=== PATIENT | female | born 1950 | race Caucasian/White ===

== ENCOUNTER 2019-05-06 05:33 | Day surgery (SDC) | payer OTHER ==
[~2019-05-06] VITALS: Ht 165.1 cm; Wt 87.1 kg
[2019-05-06 06:13] LABS: BASOPHILS 0.6 % (0-2); EOSINOPHILS 3.7 % (0-7); HEMATOCRIT 40.3 % (36.0-48.0); HEMOGLOBIN 13.1 g/dL (12-16); IMMATURE GRANULOCYTES 0.2 % (0-5); LYMPHOCYTES 20.8 % (15-50); MCH 28.9 pg (26.0-34.0); MCHC 32.5 g/dL (31.0-37.0); MEAN PLATELET VOLUME 10.8 fL (7.4-10.4); MONOCYTES 9.1 % (2-11); NEUTROPHILS 65.6 % (40-80); PLATELET COUNT 202 10x3/uL (130-400); RBC 4.53 10x6/uL (4.00-5.40); WBC 4.9 10x3/uL (4.8-10.8)
[2019-05-06 06:30] LABS: ANION GAP 12.5 mmol/L (8-16); CALCIUM 9.3 mg/dL (8.5-10.1); CARBON DIOXIDE 28.7 mmol/L (21.0-32.0); POTASSIUM - SERUM 3.2 mmol/L (3.5-5.1)
[2019-05-06 06:31] LABS: INR 0.97 (0.85-1.17); PROTIME 12.4 SECONDS (11.6-15.0)
[2019-05-06] MEDS ORDERED: EFFEXOR XR150 MG PO (06:52)
[2019-05-06] MEDS ORDERED: NORMODYNE / TR100 MG PO (06:52)
[2019-05-06] MEDS ORDERED: HYDROCHLOROTHIA25 MG PO (06:53)
[2019-05-06 07:02] VITALS: BP 117/73; Ht 165.1 cm; Wt 87.1 kg
[2019-05-06] MEDS ORDERED: HYDROCODON-ACE1 EAC7 PO (09:47)
--- NOTE | 2019-05-06 11:00 | NUR ---
1036-REC'D FROM RR. ALERT AND AWAKE,VSS, 02 2L VIA N/C. REPORTS PAIN 03/31,DESCRIBES "THROBBING" JORDANA DRAIN INTACT TO BACK WITH RED BLOOD DRAINING-20CC CURRENTLY. DRESSING CDI. CL IN EASY REACH,DAUGHTER AT BEDSIDE. REVIEWED DISCHARGE CRITERIA
--- NOTE | 2019-05-06 11:02 | NUR ---
1058-FULL LIQUID TRAY TO ROOM.
--- NOTE | 2019-05-06 12:25 | NUR ---
1200- DISCHARGE CRITERIA MET. REMOVED IV FROM LAC WITH CATH INTACT. DISPOSED INTO SHARPS, COVERED SITE WITH BANDAID. REVIEWED POST OPERATIVE INSTRUCTIONS AND TEACHING ON JORDANA DRAINAGE EMPTYING THREE TIMES DAILY PER VERBALIZED UNDERSTANDING. DRESSING TO BACK CDI.
--- NOTE | 2019-05-06 12:26 | NUR ---
1212-PT DRESSED. ESCORTED OUT VIA W/C WITH DAUGHTER AWAITING TO DRIVE HOME.
--- NOTE | 2019-05-17 07:37 | OP ---
PATIENT NAME: KOBY HWANG MEDICAL RECORD: [id number] :50 LOCATION:[facility] ADMISSION DATE: SURGEON: GEOVANNI WILSON MD DATE OF OPERATION: 05/06/2019 REFERRED BY: Dr. 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 OPERATION PERFORMED: Excision. SURGEON: Geovanni Wilson MD ANESTHESIA: General endotracheal per [facility]. PREOPERATIVE NOTE: Ms. 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 This was excised approximately 10 years ago and it was a benign lipoma at that time. The lesion is now about the size of a baseball and is causing surrounding pressure type symptoms. She is brought to the OR for its excision. Under general anesthesia, the patient was turned into the decubitus position and prepped and draped in sterile manner. A transverse incision was placed directly over the mass and the incision carried through the superficial subcutaneous fat to expose the pseudocapsule of the underlying lipoma. Blunt and sharp dissection was then used to shell the lipomatous tumor out of the wound. It was lying on top of and attached to the investing muscular fascia, but the dissection was really quite easy. The tumor itself measured perhaps 8 x 7 x 5 cm. It was a well-encapsulated seemingly and lobulated. The wound was then infiltrated with 0.25% Marcaine with epinephrine and closed over a 10-mm flat fluted closed suction drain using interrupted inverted 3-0 Vicryl and running intracuticular 4-0 Stratafix. The incision was sealed with glue. The incision was then dressed with Maxorb Ag, Tegaderm, and Cavilon skin prep. The JORDANA drain site was dressed with a chlorhexidine Biopatch, Tegaderm and a Medipore adhesive dressing. She was then awakened and taken back to the recovery room in stable condition. Blood loss during the operation was about 5 cc, was unreplaced. Sponges, instruments, and needles were accounted for. One drain was used as I described and the surgical specimen, the entire excised lipomatous mass was sent to pathology for gross and microscopic examination. PLAN: The patient will be discharged to home today. She will be instructed in JORDANA drain care. She is to keep a written record of the volume of drainage and bring it with her when she comes to see me in my office next week. She is given a prescription for Ganado 5/325, #10 tablets, she can take 1 or 1-2 p.o. q.6 hours p.r.n. pain, but is encouraged to substitute or alternate with ibuprofen 400 mg. Also, she is encouraged to use ice to decrease discomfort as well as bleeding, bruising and swelling in the area. She is to keep the incision site and the drain site dry and clean and I will remove her dressing when I see her next week. OPERATIVE REPORT [id number] KOBY HWANG TRANSINT:[id number] Voice Confirmation ID: [id number] DOCUMENT ID: [id number] GEOVANNI WILSON MD at 0737 CC: HILARIO RODRIGUEZ [id number] DICTATION DATE: 05/06/19 1008 EXPERIMENTAL MECHANIC ELECTRICAL: 05/06/19 1021 [facility] 05/06/19 [id number] [place] [address]
== END 2019-05-06 12:12 | disposition home or self-care (01) ==
LOC: D.OPS 05:33
PROVIDERS: ATTEND Surgery
DX: D17.1 Benign lipomatous neoplasm of skin and subcutaneous tissue of trunk (principal)

== ENCOUNTER 2020-12-22 05:54 | Observation (INO) | payer OTHER ==
[~2020-12-22] VITALS: Ht 165.1 cm; Wt 78.6 kg
[2020-12-22] VITALS (8 sets, daily range): BP systolic 126–186; BP diastolic 44–99; Ht 165.1 cm; Wt 78.6 kg
[~2020-12-22 05:54] MED LIST: EFFEXOR XR150 MG PO; HYDROCHLOROTHIA25 MG PO; HYDROCODON-ACE1 EAC7 PO; NORMODYNE / TR100 MG PO
[2020-12-22] MEDS ORDERED: FENTANYL1 EAC6 TRANSDERM (06:11)
[2020-12-22] MEDS ORDERED: NEURONTIN 300300 MG PO (06:23)
[2020-12-22 06:45] LABS: BASOPHILS 1.3 % (0-2); HEMATOCRIT 41.1 % (36.0-48.0); HEMOGLOBIN 13.2 g/dL (12-16); LYMPHOCYTES 16.4 % (15-50); MCH 27.7 pg (26.0-34.0); MCHC 32.2 g/dL (31.0-37.0); MCV 86.1 fL (80.0-100.0); MEAN PLATELET VOLUME 8.7 fL (7.4-10.4); MONOCYTES 8.8 % (2-11); NEUTROPHILS 66.5 % (40-80); PLATELET COUNT 188 10x3/uL (130-400); RBC 4.77 10x6/uL (4.00-5.40); RDW 14.7 % (11.5-14.5); WBC 5.8 10x3/uL (4.8-10.8)
[2020-12-22 07:00] LABS: CALC OSMOLALITY 281 mosm/kg (275-300); CALCIUM 8.8 mg/dL (8.5-10.1); CARBON DIOXIDE 27.1 mmol/L (21.0-32.0); CHLORIDE - SERUM 102 mmol/L (98-107); CREATININE - SERUM 0.8 mg/dL (0.6-1.3); GLUCOSE 116 mg/dL (74-106); POTASSIUM - SERUM 3.9 mmol/L (3.5-5.1); SODIUM 138 mmol/L (136-145); UREA NITROGEN 26 mg/dL (7-18); eGFR NON AFRICAN AMERICAN 75 mL/min (90-120)
[2020-12-22 07:08] LABS: ALBUMIN 3.9 g/dL (3.4-5.0); ALKALINE PHOSPHATASE 108 U/L (30-120); ALT (SGPT) 45 U/L (10-68); BILIRUBIN - TOTAL 0.27 mg/dL (0.2-1.3); C-REACTIVE PROTEIN 0.2 mg/dL (0.0-0.9); MAGNESIUM - SERUM 1.9 mg/dL (1.8-2.4); PROTEIN - SERUM 7.6 g/dL (6.4-8.2); TROPONIN-I < 0.017 ng/mL (0.000-0.060)
[2020-12-22 08:26] LABS: APTT 29.8 SECONDS (22.8-39.4); INR 1.01 (0.85-1.17); PROTIME 12.3 SECONDS (11.6-15.0)
[2020-12-22 09:14] LABS: CKMB 2.9 U/L (0.0-3.6); CREATINE KINASE 120 UL (21-215); THYROID STIMULATING HORMONE 3.83 uIU/mL (0.36-3.74)
--- NOTE | 2020-12-22 10:31 | NUR ---
PATIENT HAS A PAIN PUMP THAT NEEDS TO BE CHECKED BY HER DOCTOR AFTER MRI IS DONE. WE WERE UNABLE TO DO MRI BECAUSE THE DOCTORS OFFICE IS CLOSED. [employer] STATED IT MUST BE CHECKED AFTER MRI. SPOKE WITH DR. MONTIEL HE HAD ME CALL DR DURÁN. SPOKE WITH DR DURÁN AND HE TOLD ME TO CANCEL IT.
[2020-12-22] MEDS ORDERED: NORMODYNE / TR200 MG PO (16:21)
--- NOTE | 2020-12-22 16:28 | NUR ---
TO ROOM VIA WHEELCHAIR FROM ER. FAMILY AT BEDSIDE. DENIES NEEDS AT THIS TIME. BED LOW POSITION, CALL LIGHT IN REACH. FREE FROM SIGNS OF DISTRESS. WILL CONTINUE TO MONITOR.
--- NOTE | 2020-12-22 19:00 | NUR ---
BEDSIDE REPORT RECEIVED AND CARE OF ASSUMED. PY LYING IN LOW PHELPS'S POSITION WATCHING TV. IV TO LEFT FA SALINE LOCKED. WILL MONITOR FOR NEEDS.
--- NOTE | 2020-12-22 19:46 | NUR ---
HS MEDICATIONS GIVEN. WILL CONTINUE TO MONITOR FOR NEEDS. FAMILY MEMBER IS AT BEDSIDE.
[2020-12-23] VITALS: BP 145/63
[2020-12-23 04:00] VITALS: BP 130/65
[2020-12-23 05:00] LABS: EOSINOPHILS 5.9 % (0-7); HEMOGLOBIN 13.8 g/dL (12-16); IMMATURE GRANULOCYTES 0.2 % (0-5); LYMPHOCYTE ABS# 0.94 10x3/uL (1.18-3.74); LYMPHOCYTES 17.9 % (15-50); MCHC 31.4 g/dL (31.0-37.0); MCV 89.2 fL (80.0-100.0); MEAN PLATELET VOLUME 11.4 fL (7.4-10.4); MONOCYTES 8.6 % (2-11); NEUTROPHILS 66.4 % (40-80); PLATELET COUNT 187 10x3/uL (130-400); RBC 4.93 10x6/uL (4.00-5.40); RDW 14.5 % (11.5-14.5); WBC 5.3 10x3/uL (4.8-10.8)
[2020-12-23 05:15] LABS: ALBUMIN 3.9 g/dL (3.4-5.0); BILIRUBIN - TOTAL 0.27 mg/dL (0.2-1.3); CALCIUM 9.5 mg/dL (8.5-10.1); CARBON DIOXIDE 27.8 mmol/L (21.0-32.0); CREATININE - SERUM 0.9 mg/dL (0.6-1.3); POTASSIUM - SERUM 3.8 mmol/L (3.5-5.1); PROTEIN - SERUM 7.7 g/dL (6.4-8.2)
--- NOTE | 2020-12-23 07:47 | NUR ---
IN BED RESTING. BED LOW POSITION, CALL LIGHT IN REACH. ON ROOM AIR. WILL CONTINUE TO MONITOR.
[2020-12-23 08:27] VITALS: BP 121/73
[2020-12-23 12:54] VITALS: BP 145/74
[2020-12-23] MEDS ORDERED: NORVASC10 MG PO (14:18)
[2020-12-23] MEDS ORDERED: NORMODYNE / TR100 MG PO (14:18)
[2020-12-23] MEDS ORDERED: PLAVIX75 MG PO (14:18)
[2020-12-23] MEDS ORDERED: ASPIRIN EC325 MG PO (14:19)
--- NOTE | 2020-12-23 15:28 | NUR ---
DISCHARGE PAPERS COMPLETE. NO FURTHER QUESTIONS. IV CATH REMOVED, CATH TIP INTACT. BELONGINGS GATHERED. LEFT UNIT VIA WHEELCHAIR AT THIS TIME. TO DISCHARGE HOME.
--- NOTE | 2020-12-23 17:26 | MORECARE ---
CASE MANAGEMENT DISCHARGE SUMMARY PATIENT: KOBY SPRINGER UNIT: [id number] ADM DATE: 12/22/20 AGE: 70 : 50 SEX: F ROOM/BED: D[facility] AUTHOR: JULES,DOC PHYSICIAN: REFERRING PHYSICIAN: ROSELYN GÓMEZ MD DATE OF SERVICE: 12/23/20 Case Management Discharge Planning Summary DCP REVIEW SUMMARY ANTICIPATED D/C DATE: EXPECTED LOS : CASE STATUS: DCP Not started INITIAL REVIEW: 12/22/2020 INITIAL REVIEWER: Mikaela Andrade FINAL DISCHARGE DISPOSITION: : FINAL REVIEWER: FINAL REVIEW DATE: DCP [employer] Questions [employer] QUESTION: ANSWER : PATIENT: KOBY SPRINGER ENCOUNTER: [id number] MEDICAL RECORD#: [id number] ADMISSION DATE: 12/22/2020 DISCHARGE DATE: 12/23/2020 ATTENDING MD: TRINA: AGE: 70 MARITAL STATUS: M DC PLAN ID: [id number] FACILITY: [facility] PRINTED ON: 12/23/20 17:26 CT All edits/amendments must be made on the electronic document DICTATION DATE: 12/23/201725 SPIRAL SPRING WINDER: DM 12/23/201725 RPT#: [id number] DC DATE:12/23/20 STATUS: DIS IN [facility] [address] [place] [address] END OF REPORT
--- NOTE | 2020-12-25 13:34 | EC ---
PATIENT:KOBY SPRINGER DATE OF SERVICE: 12/22/20 SEX: F MEDICAL RECORD: [id number] DATE OF : 50 LOCATION:[facility] AGE OF PATIENT: 70 ADMISSION DATE: 12/22/20 REFERRING PHYSICIAN: INTERPRETING PHYSICIAN: JANUARY LOPEZ MD ECHOCARDIOGRAM REPORT ECHO CHARGES 4 ECHO COMPLETE Date: 12/22/20 CLINICAL DIAGNOSIS: TIA ECHOCARDIOGRAPHIC MEASUREMENTS (adult normal given) AC root (d.<3.7cm) 2.5 cm LV Septum d (<1.2 cm> 1.0 cm Valve Excursion 1.7 cm LV Septum (systole) 1.3 cm Left Atria (s.<4.0cm> 4.1 cm LVPW d(<1.2cm) 0.8 cm RV (d.<2.3cm) 2.9 cm LVPW (sytole) 1.1 cm LV diastole(<5.6CM) 4.4 cm MV E-F(>70mm/sec) cm LV systole 3.2 cm LVOT Diameter 1.7 cm MV exc.(>10mm) 1.6 cm Est.ejection fraction (50-75%) % DOPPLER: LVIT cm/sec A 92 cm/sec E 74 cm/sec LA cm/sec RVSP 27 mmHg LVOT 117 cm/sec AOP1/2T m/s Asc. Ao 151 cm/sec RVOT 61 cm/sec RA cm/sec PA 101 cm/sec AV Gradient Peak 9.1 mmHg AV Mean 4.6 mmHg AV Area 1.7 cm MV Gradient Peak 3.4 mmHg MV Mean 1.5 mmHg MV Area cm COMMENTS: Oral Pathologist: Gopi LOZANO Business Risk Consultant: 5 Dr. Lopez TAPE# Pericardial Effusion N DATE OF SERVICE: 12/23/2020 CLINICAL INDICATION: TIAs. INTERPRETATION: Technically difficult study, overall normal left ventricular chamber size and contractile function, ejection fraction 55%. Left atrial chamber appears normal. Right atrium and right ventricular chamber is not well visualized, but appeared normal. Aortic valve not well visualized, but appears normal. No aortic stenosis/regurgitation. Mitral valve appears normal. No mitral regurgitation. Tricuspid valve appears normal. Trace tricuspid ECHOCARDIOGRAM REPORT [id number] KOBY SPRINGER regurgitation. Pulmonic valve not well visualized, but appeared normal. No pulmonary regurgitation. No pericardial effusion visualized. IMPRESSION: Technically difficult study, overall normal left ventricular chamber size and contractile function with ejection fraction of 55%. TRANSINT:[id number] Voice Confirmation ID: [id number] DOCUMENT ID: [id number] JANUARY LOPEZ MD at 1334 CC: [id number] DICTATION DATE: 12/23/20 0945 FORMING MACHINE UPKEEP MECHANIC HELPER: 12/23/20 1247 DIS IN 12/23/20 [facility] [address] [id number]
== END 2020-12-23 15:28 | disposition home or self-care (01) ==
LOC: D.ER 05:54 → OBSVTIME 08:42 → D.EDHOLD 08:42 → D.MS 14:05
PROVIDERS: Family Medicine; ADMIT Family Medicine; ATTEND Family Medicine
DX: G45.9 Transient cerebral ischemic attack, unspecified (principal); R53.1 Weakness; R20.0 Anesthesia of skin; I10 Essential (primary) hypertension; K21.9 Gastro-esophageal reflux disease without esophagitis; R20.2 Paresthesia of skin; Z79.82 Long term (current) use of aspirin